=== PATIENT | male | born 1980 | race Caucasian/White ===

== ENCOUNTER → 2025-05-19 13:11 | Outpatient (BNVA) | payer OTHER, SELFPAY | PROVIDERS: Visit Provider Physician Assistant Medical | DX: S93.401A Sprain of unspecified ligament of right ankle, initial encounter (principal); X50.1XXA Overexertion from prolonged static or awkward postures, initial encounter; M25.471 Effusion, right ankle | CPT/HCPCS: 73610; 99203 ==